=== PATIENT | female | born 1955 | race Caucasian/White ===

== ENCOUNTER 2019-10-21 11:31 | Emergency (ER) | payer MEDICARE, SELFPAY | END 2019-10-21 14:12 | disposition home or self-care (01) | PROVIDERS: Emergency Provider Family Medicine; Family Provider Family Medicine; Visit Provider Family Medicine | DX: A08.4 Viral intestinal infection, unspecified (principal); K29.00 Acute gastritis without bleeding; I10 Essential (primary) hypertension; E11.9 Type 2 diabetes mellitus without complications; Z86.73 Personal history of transient ischemic attack (TIA), and cerebral infarction without residual deficits; Z88.5 Allergy status to narcotic agent; Z88.0 Allergy status to penicillin | CPT/HCPCS: 36415; 71045; 74177; 80053; 81001; 83605; 83690; 85025; 87040 ×2; 96361; 96365; 96375; 99284; J0696; J2405; Q9967 ==

== ENCOUNTER → 2019-12-11 10:54 | Outpatient (BNVA) | payer MEDICARE, MEDICAID, SELFPAY | PROVIDERS: Family Provider Family Medicine; PCP Family Medicine; Visit Provider Nurse Practitioner Family | DX: N39.46 Mixed incontinence (principal) | CPT/HCPCS: 81001 ==

== ENCOUNTER → 2020-02-04 07:43 | Outpatient (BNVA) | payer MEDICARE, MEDICAID, SELFPAY | PROVIDERS: Family Provider Family Medicine; PCP Family Medicine; Visit Provider Psychiatry & Neurology Psychiatry | DX: F41.1 Generalized anxiety disorder (principal); F33.2 Major depressive disorder, recurrent severe without psychotic features | CPT/HCPCS: 99204 ==

== ENCOUNTER → 2020-02-11 08:25 | Outpatient (BNVA) | payer MEDICARE, MEDICAID, SELFPAY | PROVIDERS: Family Provider Family Medicine; PCP Family Medicine; Visit Provider Psychiatry & Neurology Psychiatry | DX: F33.2 Major depressive disorder, recurrent severe without psychotic features (principal); F41.1 Generalized anxiety disorder | CPT/HCPCS: 99213 ==

== ENCOUNTER → 2020-03-10 07:52 | Outpatient (BNVA) | payer MEDICARE, SELFPAY | PROVIDERS: Family Provider Family Medicine; PCP Family Medicine; Visit Provider Psychiatry & Neurology Psychiatry | DX: F33.2 Major depressive disorder, recurrent severe without psychotic features (principal); F41.1 Generalized anxiety disorder | CPT/HCPCS: 99213 ==

== ENCOUNTER 2020-05-19 19:24 | Emergency (ER) | payer MEDICARE, OTHER, SELFPAY ==
[2020-05-19 19:34] VITALS: BP 147/86; PULSE 76; RESP 14; TEMP 37.3; O2SAT 98; BMI 36.0
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
[2020-05-19 19:48] VITALS: BP 116/48; PULSE 67; RESP 16; O2SAT 93
--- NOTE | 2020-05-19 19:56 | PC.NURSE ---
patient taken to CT
[2020-05-19 20:54] VITALS: PULSE 63; RESP 16; O2SAT 91
[2020-05-19 20:55] VITALS: BP 127/58; PULSE 64; RESP 15; O2SAT 92
== END 2020-05-19 20:55 | disposition home or self-care (01) ==
PROVIDERS: Emergency Provider Physician Assistant; PCP Family Medicine
DX: S39.012A Strain of muscle, fascia and tendon of lower back, initial encounter (principal); S13.9XXA Sprain of joints and ligaments of unspecified parts of neck, initial encounter; V89.2XXA Person injured in unspecified motor-vehicle accident, traffic, initial encounter
CPT/HCPCS: 12345; 70450; 72125; 72128; 72131; 73030; 99281; 99283

== ENCOUNTER 2021-01-05 19:05 | Observation (INO) | payer MEDICARE, OTHER, MEDICAID, SELFPAY ==
[2021-01-05] VITALS (7 sets, daily range): BP systolic 116–144; BP diastolic 61–83; PULSE 57–72; RESP 16–18; TEMP 36.6–37.2; O2SAT 90–99; BMI 43.9
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
--- NOTE | 2021-01-05 19:24 | PC.NURSE ---
security received $3200; six rings and one firearm to hold.
[2021-01-05] MEDS: HYDROmorphone 1 mg/mL INJ 1 mL IVP (19:32)
[2021-01-05] MEDS: ondansetron 2 mg/ML SDV 2 mL 4 MG IVP (19:32)
--- NOTE | 2021-01-05 19:47 | PC.NURSE ---
6 rings; $3200 in [place] and one pistol given to Candido Gates per patient request.
[2021-01-05] MEDS: morphine 4 mg/mL SDV 1 mL 2 MG IVP (23:14)
[2021-01-06] VITALS (27 sets, daily range): BP systolic 118–193; BP diastolic 71–122; PULSE 55–78; RESP 12–37; TEMP 36.1–37; O2SAT 94–100
--- NOTE | 2021-01-06 | XR_ITS ---
WS: [id number] XR forearm RT 2V [id number] REASON FOR EXAM: ORIF right forearm FINDINGS: Plate and screw fixation of previously demonstrated comminuted transverse fractures of the distal thi rd of the right radius and ulna. Fracture fragments and surgical appliances are in proper position an d alignment. No angulation the fracture sites. XR/XR forearm RT 2V [id number] IMPRESSION: Fixation of right radial and ulnar fractures.
--- NOTE | 2021-01-06 | SCC_ITS ---
Procedure Done: Open reduction internal fixation right both bone forearm fracture 3.6 seconds of fluoroscopic guidance, for a cumulative dose of 0.8 mGy, was provided to Dr. Cobos by the radiology department. C-arm images of the RIGHT forearm were saved for the patient's permanent record. [facility]
[2021-01-06] MEDS: morphine 4 mg/mL SDV 1 mL 2 MG IVP (04:05)
--- NOTE | 2021-01-06 06:41 | ANES.PREANE2 ---
Pre-Anesthetic Assessment Pre-Anesthetic Assessment: Height/Weight: Height 1.52 m Weight 102.058 kg Temp Pulse Resp BP Pulse Ox 97 F L 62 18 124/71 98 01/06/21 06:35 01/06/21 06:35 01/06/21 06:35 01/06/21 06:35 01/06/21 06:35 Proposed Procedure: Operation Date: 01/06/21 07:20 Proposed Procedures p orif right forearm(Right) - Kilo Cobos MD Was Beta Ira taken within 24 hours: N/A Was Clonidine taken within 24 hours: N/A Last intake: Intake Last Liquid Date 01/05/21 Last Liquid Time 23:45 Last Solid Date 01/05/21 Last Solid Time 15:00 Social: Social History: No alcohol and No tobacco Exam: Pre-Anes Outpt Exam: alert, oriented x 3, clear to auscultation bilaterally and regular rate & rhythm Airway: Submandibular: WNL Cervical ROM: WNL MP: 2 Dentition: False CV/HEM: CV/HEM: None reported : : Chronic renal Insufficiency GI: GI: GERD Metabolic: Metabolic: Morbid obesity Musc/skel: Musc/skel: Lower Back Pain and RA Neuropsych: Neuropsych: Anxiety Anesthetic Plan: ASA status: 3 Anesthesia: General Risk of > 500 ml blood loss (7ml/kg in children): No PFSH Anesthesia PFSH: Medical History Urinary incontinence, mixed Surgical History History of bilateral carpal tunnel release History of rectal polypectomy History of total bilateral knee replacement Hx of appendectomy Hx of hysterectomy Hx of tonsillectomy Family History Other CAD (coronary artery disease) Cancer Diabetes Hypertension Stroke Social History Smoking and tobacco status: never smoked Alcohol intake: never Adopted: No Caregiver/support person: No Marital status: / Current occupational status: disabled History of recent travel: No Current gender identity: Female Data Anesthesia Cardiac Studies: No Data to Display
[2021-01-06] MEDS: sodium chloride 0.9% 1,000 ML 30 ML IV (06:47)
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
--- NOTE | 2021-01-06 08:51 | PM.OP ---
Operative Report Date of procedure: January 06, 2021 Pre-op Diagnosis: Right both bone forearm fracture Post-op diagnosis: same Post-op Findings: Same Procedure Done: Open reduction internal fixation right both bone forearm fracture Implants: Hosea small frag plates Pathology: none sent Surgeon: Kilo Cobos Anesthesia: General Estimated blood loss (mL): 50 Tourniquet time (min): 44 Complications: None Findings: The patient comminuted fractures of the diaphysis of her right radial and ulnar shafts Condition: stable Disposition: PACU Procedure: The patient was taken the operating room and given 2 g of Ancef. She was given a general anesthesia. A timeout was performed. Initially an 8-minute millimeter long incision was made over the volar radial forearm overlying the fracture. The interval for this between the brachial radialis and brachialis was identified I dissection was carried through the fascia. The fracture was identified with some tearing of the flexor pollicis longus muscle belly. The FPL was mobilized from its attachment subperiosteally. 2 reduction clamps were used to bring the radial fragments out to length and provisional reduction was held with a K wire. A 7 hole Hosea compression plate was applied and fixed proximally and distally with 2 bicortical nonlocking and 1 locking screw on each side of the fracture. Next an 8 cm long incision was made along the subcutaneous border of the ulna and dissection carried down to the ulnar shaft. Periosteum was elevated laterally. With the 2 lobster-claw clamps the fracture could be brought out to length and a small butterfly fragment locked into place. The K wire again was used to maintain provisional fixation. A 7 hole semitubular plate was placed and again fixed with 3 proximal and 3 distal graft distal all nonlocking screws. The tourniquet was deflated. Hemostasis provided with cautery. Subcutaneous tissues were closed with 2-0 Vicryl. The skin was closed with skin tressa. Xeroflo gauze, 4 x 4's, compressive web roll, and Marcus wrap were applied. Patient was extubated and taken to recovery room in stable condition.
[2021-01-06] MEDS: ondansetron 2 mg/ML SDV 2 mL 4 MG IVP ×2 (09:01→09:27)
[2021-01-06] MEDS: fentaNYL 50 mcg/mL INJ 2mL IVP ×3 (09:04→11:47)
[2021-01-06] MEDS: diphenhydrAMINE 50 mg/mL SDV 1mL 12.5 MG IVP (09:14)
--- NOTE | 2021-01-06 09:46 | SUR.PHASEI ---
PT TO OPS 10 PACU EARLIER VERY ANXIOUS WITH RESP 22-24 PT C/O OF NAUSEA AND PAIN, SEE MEDS GIVEN PT NOW MORE RELAXED AND RESTFULL , C/O OF NAUSEA ONLY SEE ZOFRAN REPEATED. BP NOW PER PT LT LOWER LEG PT C/O OF NAUSEA. PT BELCHING OCCASIONALLY COOL CLOTH TO FOREHEAD, PT STATES( I TAKE PEPCID AT HOME FOR NAUSEA)
--- NOTE | 2021-01-06 09:49 | SUR.PHASEI ---
0940 PT RESTING QUIETLY , PT NOW IN HOLDING AND OUT OF PHASE 1 WAITING TO GIVE REPORT TO NURSE.
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
[2021-01-06] MEDS: oxyCODONE-APAP 5-325 mg Tablet PO (12:37)
[2021-01-06] MEDS: gabapentin 400 mg Capsule 1200 MG PO (12:39)
[2021-01-06] MEDS: ondansetron 2 mg/ML SDV 2 mL 8 MG IVP (12:39)
[2021-01-06] MEDS: sodium chloride 0.9% 1,000 ML 80 ML IV (12:39)
--- NOTE | 2021-01-06 13:35 | P.ANESPOST_ITS ---
Inpatient post-anesthesia follow up: Airway intact: Yes Vital signs: Temperature 97.4 F Pulse Rate [Monito r] 57 Pulse Rate 58 Respiratory Rate 18 Blood Pressure [Le ft Arm] 144/83 Blood Pressure 184/81 Pulse Oximetry 97 Oxygen Delivery Me thod Nasal Cannula Oxygen Flow Rate 3 Fraction of Inspir ed Oxygen Hydration adequate: Yes Nausea and vomiting: Yes Pain level: 3 Add itional Comments: Sedated
--- NOTE | 2021-01-06 19:15 | PC.NURSE ---
Discharge Patient taken by wheelchair with all personal belongings to private vehicle, family driving, at this time. Pt. has discharge instructions and no questions regarding them. IV was removed by day shift nurse.
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
== END 2021-01-06 18:55 | disposition home health service (06) ==
LOC: ER 21:10 → MEDSURG 23:06
PROVIDERS: Admitting Provider Orthopaedic Surgery; Emergency Provider Physician Assistant; PCP Family Medicine; Visit Provider Orthopaedic Surgery
PROC: (CPT 25575; principal; 2021-01-06 07:00)
DX: S52.91XA Unspecified fracture of right forearm, initial encounter for closed fracture (principal); S52.201A Unspecified fracture of shaft of right ulna, initial encounter for closed fracture; V89.2XXA Person injured in unspecified motor-vehicle accident, traffic, initial encounter; K21.9 Gastro-esophageal reflux disease without esophagitis; E66.01 Morbid (severe) obesity due to excess calories; Z68.41 Body mass index [BMI] 40.0-44.9, adult
CPT/HCPCS: 25575; 72100; 73090; 73100; 73110; 73502; 76000; 96361; 96374; 96375; 96376; 97165; 99285; C1713; G0378; J0690; J1170; J1200; J1580; J2270; J2405; J2704; J3010; J3490; J7030

== ENCOUNTER → 2021-01-27 14:01 | Outpatient (BNVA) | payer MEDICARE, SELFPAY | PROVIDERS: PCP Family Medicine; Visit Provider Orthopaedic Surgery | DX: M19.041 Primary osteoarthritis, right hand (principal); M79.641 Pain in right hand | CPT/HCPCS: 73140 ==

== ENCOUNTER → 2021-02-17 13:54 | Outpatient (BNVA) | payer MEDICARE, SELFPAY | PROVIDERS: PCP Family Medicine; Visit Provider Orthopaedic Surgery | DX: M79.641 Pain in right hand (principal); S52.209A Unspecified fracture of shaft of unspecified ulna, initial encounter for closed fracture; S52.309A Unspecified fracture of shaft of unspecified radius, initial encounter for closed fracture; Z98.890 Other specified postprocedural states; Z48.89 Encounter for other specified surgical aftercare; X58.XXXA Exposure to other specified factors, initial encounter | CPT/HCPCS: 73090 ==

== ENCOUNTER → 2021-05-31 14:50 | Outpatient (BNVA) | payer MEDICARE, MEDICAID, SELFPAY | PROVIDERS: PCP Family Medicine; Visit Provider Nurse Practitioner Family | DX: N39.46 Mixed incontinence (principal) | CPT/HCPCS: 81003 ==

== ENCOUNTER 2021-06-03 09:59 | Outpatient (CLI) | payer MEDICARE, MEDICAID, SELFPAY ==
--- NOTE | 2021-06-03 10:04 | MM_ITS ---
WS: [id number] BILATERAL SCREENING DIGITAL MAMMOGRAM WITH CAD HISTORY: SCREENING COMPARISON: 06/30/2017 and 10/21/2010 Bilateral CC and MLO views submitted. Computer aided detection analyzed. Breast composition: The breasts are heterogeneously dense, which may obscure small masses. No suspici ous masses, microcalcifications or architectural distortion. Scattered benign calcifications. MM/[place] [id number] IMPRESSION: BI-RADS: 2-Benign FOLLOW UP: 1 Year Follow-up
== END 2021-06-03 10:00 | disposition home or self-care (01) ==
LOC: RADSHAW 10:01
PROVIDERS: PCP Family Medicine; Visit Provider Family Medicine
DX: Z12.31 Encounter for screening mammogram for malignant neoplasm of breast (principal)
CPT/HCPCS: 77067

== ENCOUNTER → 2021-10-12 13:42 | Outpatient (BNVA) | payer MEDICARE, MEDICAID, SELFPAY | PROVIDERS: PCP Family Medicine; Visit Provider Nurse Practitioner Family | DX: Z20.822 Contact with and (suspected) exposure to COVID-19 (principal); Z20.828 Contact with and (suspected) exposure to other viral communicable diseases | CPT/HCPCS: 87635 ==

== ENCOUNTER 2024-02-13 11:31 | Outpatient (CLI) | payer MEDICARE, MEDICAID, SELFPAY ==
--- NOTE | 2024-02-13 11:38 | CT_ITS ---
WS: [id number] CT ANGIOGRAM CEREBRAL AND CAROTID ARTERIES HISTORY: RLE WEAKNESS TECHNIQUE: CT angiogram is performed of the carotid and cerebral arteries. During arterial injection imaging is obtained from the skull vertex to the aortic arch in 1.25 mm imaging. Coronal and sagittal reformats are submitted. Additional multi planar reformats of the carotid and cerebral arteries are submitted, MIP imaging also reviewed. NASCET criteria utilized. [facility] CT [facility] at [facility] e at least one of these dose optimization techniques: automated exposure control; mA and/or kV adjust ment per patient size (includes targeted exams where dose is matched to clinical indication); or iter ative reconstruction. CONTRAST: Omnipaque 350; 100 mL IV. DLP: 1171.40 mGy.cm COMPARISON: CT head 05/19/2020. No acute intracranial hemorrhage. Moderate small vessel ischemic disease throughout the white matter. Mild progression since 2019. Prior lacunar infarct in the RIGHT caudate. Carotid Angiogram: Right carotid: Common carotid artery: Tortuous ectatic cervical carotid artery. Increasing plaque towards the bifurc ation. Internal carotid artery: Calcified plaque at the bifurcation. RIGHT ICA stenosis less than 50%. External carotid artery: Patent. Left carotid: Common carotid artery: Arises from the base of the innominate. Normal caliber. Mild calcified plaque and intimal thickening at the bifurcation. Internal carotid artery: No significant ICA stenosis. External carotid artery: Patent. Right vertebral artery: Unremarkable. Left vertebral artery: Unremarkable. Arises normally from the subclavian artery. Subclavian arteries: No stenosis or significant abnormality. Upper thorax: Atherosclerotic plaque in the aortic arch. Thyroid gland: Subcentimeter bilateral thyroid nodules. Osseous structures: Mild cervical spondylosis. CEREBRAL ANGIOGRAM: Intracranial vertebral arteries: Normal with no significant atherosclerosis. Basilar artery: No significant stenosis or occlusion. No aneurysm. Intracranial Internal carotid arteries: Mild carotid atherosclerotic plaque. No high-grade stenosis. Middle cerebral arteries: Normal. Anterior cerebral arteries and ACOM: Normal. Posterior cerebral arteries and PCOM's: Persistent RIGHT circulation. Hypoplastic LEFT posterio r communicating artery. Dural venous sinuses are normally enhancing. Mastoid air cells: Normal. Paranasal sinuses: Dense consolidation in the LEFT sphenoid sinus. Inspissated material. Otherwise si nuses are clear. Calvarium: Normal. IMPRESSION: 1. No high-grade cervical carotid stenosis. Stenosis estimated at much less than 50% bilateral. 2. Mild atherosclerosis intracranial carotid arteries. 3. No [place] aneurysm or occlusions.
[2024-02-13] MEDS: iohexol 350 mg/mL 500 mL Btl (per mL) IV (12:29)
== END 2024-02-13 11:32 | disposition home or self-care (01) ==
LOC: RAD 11:34
PROVIDERS: PCP Family Medicine; Visit Provider Family Medicine
DX: M62.81 Muscle weakness (generalized) (principal); I65.21 Occlusion and stenosis of right carotid artery
CPT/HCPCS: 70496; 70498; Q9967

== ENCOUNTER 2025-01-10 11:17 | Outpatient (CLI) | payer MEDICARE, SELFPAY ==
--- NOTE | 2025-01-10 11:25 | MM_ITS ---
WS: [id number] BILATERAL 3D TOMOSYNTHESIS DIGITAL SCREENING MAMMOGRAPHY WITH CAD CLINICAL INFORMATION: SCREENING HISTORY: Screening mammogram. No current complaints. COMPARISON: 2020 TECHNIQUE: Bilateral CC and MLO views. FINDINGS: The breasts are composed of heterogeneous fibroglandular density tissue, which can limit the detection of small underlying mass lesions. No suspicious mass, asymmetry, calcifications, or architectural distortion. No evidence of malignancy. Incidental punctate and lucent centered calcifications. MM/MM [facility] tomosynthesis [id number] IMPRESSION: DENSITY: The breasts are heterogeneously dense, which may obscure small masses. BI-RADS: 2 - Benign FOLLOW UP: 1 Year Follow-up Recommend return to annual screening mammography.
== END 2025-01-10 11:18 | disposition home or self-care (01) ==
LOC: RAD 11:21
PROVIDERS: PCP Family Medicine; Visit Provider Family Medicine
DX: Z12.31 Encounter for screening mammogram for malignant neoplasm of breast (principal); R92.333 Mammographic heterogeneous density, bilateral breasts; R92.1 Mammographic calcification found on diagnostic imaging of breast
CPT/HCPCS: 77063; 77067